=== PATIENT | female | born 1955 | race Caucasian/White ===

== ENCOUNTER → 2018-06-21 | Outpatient (CLI) | payer MEDICARE, BC ==
[~2018-06-21] MED LIST: REGADENOSON 0.4 MG/5 ML SYRINGE ONE
== END | disposition home or self-care (01) ==
LOC: CFH 11:03
PROVIDERS: ATTEND Internal Medicine Cardiovascular Disease
DX: I34.8 Other nonrheumatic mitral valve disorders (principal)
CPT/HCPCS: 93306; J2785

== ENCOUNTER → 2018-07-19 | Outpatient (CLI) | payer MEDICARE, BC | END | disposition home or self-care (01) | LOC: CFH 11:08 | PROVIDERS: ATTEND Internal Medicine Cardiovascular Disease | DX: R00.2 Palpitations (principal); R06.02 Shortness of breath | CPT/HCPCS: 78452; 93017; A9502; J2785 ==